=== PATIENT | male | born 2005 | race Caucasian/White ===

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

== ENCOUNTER 2023-11-10 01:35 | Emergency (ER) | payer OTHER, SELFPAY ==
[2023-11-10] VITALS (9 sets, daily range): BP systolic 118–138; BP diastolic 57–73; PULSE 101–130; RESP 13–24; TEMP 36.3; O2SAT 95–100
--- NOTE | ~2023-11-10 | XR_ITS ---
EXAMINATION: XR chest 2V DATE: 11/10/2023 02:06 INDICATION: Chest pain. TECHNIQUE: Frontal and lateral views of the chest were obtained. COMPARISON: Chest 2 views 05/11/2019 FINDINGS: There is no pneumonia, pleural effusion, or pneumothorax. The heart size is normal. IMPRESSION: 1. No acute cardiopulmonary disease. Reviewed, dictated and finalized at location A.
--- NOTE | 2023-11-10 01:36 | ECG_ITS ---
Measurements Intervals [place] Rate: 129 P: 48 NH: 156 QRS: 58 QRSD: 102 T: 30 QT: 384 QTc: 564 Interpretive Statements SINUS TACHYCARDIA NONSPECIFIC T-WAVE ABNORMALITY ABNORMAL RHYTHM ECG NO PREVIOUS ECG AVAILABLE FOR COMPARISON Electronically Signed On 11-10-2023 13:00:52 CDT by Darius Frazier M.D.
[2023-11-10 01:58] LABS: Basophils Percent Auto 0.3 % (0.2-1.2); Eosinophils Absolute Auto 0.1 K/mm3 (0-0.3); Eosinophils Percent Auto 1.1 % (0-4.4); Hematocrit 42.7 % (42.0-52.0); Hemoglobin 15.3 g/dL (14.0-18.0); Immature Granulocyte Absolute 0.03 K/mm3 (0.00-0.031); Immature Granulocyte Percent A 0.3 % (0-0.5); Lymphocytes Absolute Auto 3.69 K/mm3 (0.9-3.2); Lymphocytes Percent Auto 40.3 % (18.3-44.2); Mean Corpuscular HGB Conc 35.8 g/dl (32-36); Mean Corpuscular Hemoglobin 29.1 pg (26-34); Mean Corpuscular Volume 81.3 fl (80-100); Mean Platelet Volume 9.6 fl (7.4-10.4); Monocytes Absolute Auto 0.8 K/mm3 (0.1-0.6); Monocytes Percent Auto 8.4 % (2.6-8.5); Neutrophils Absolute Auto 4.5 K/mm3 (1.3-6.7); Neutrophils Percent Auto 49.6 % (45.5-73.1); Platelet Count Result 345 k/mm3 (150-375); Red Blood Count 5.25 M/mm3 (4.6-6.20); Red Cell Distribution Width 11.8 % (11.5-14.5); White Blood Count 9.2 K/mm3 (4.5-10.0)
[2023-11-10 02:04] LABS: Alanine Aminotransferase 31 U/L (6-50); Albumin Level 4.5 g/dL (3.5-5.1); Alkaline Phosphatase 68 U/L (38-126); Anion Gap 11 mmol/L (4-12); Aspartate Amino Transferase 26 U/L (17-59); Bilirubin,Total 0.5 mg/dL (0.2-1.3); Blood Urea Nitrogen 17 mg/dL (9-20); Calcium 9.2 mg/dL (8.4-10.2); Carbon Dioxide 21 mmol/L (22-30); Chloride 104 mmol/L (98-107); Estimated CRCL calculation 138 ml/min; Estimated Glomerular Filt Rate > 60; Glucose 153 mg/dL (65-110); Lipase 49 U/L (23-300); Sodium 136 mmol/L (137-145)
[2023-11-10 02:15] LABS: Troponin I < 0.012 ng/mL (0.000-0.034)
[2023-11-10 02:20] LABS: Prothrombin Time 13.5 Seconds (11.1-14.7)
[2023-11-10 02:21] LABS: Partial Thromboplastin Time 27.7 Seconds (22.3-36.8)
--- NOTE | 2023-11-10 04:37 | ED.GENADULT ---
HPI - General Adult General Chief complaint: Chest Pain Stated complaint: chest pain Time Seen by Provider: 11/10/23 03:27 History of Present Illness HPI narrative: This is a 18-year-old male presenting after eating an edible THC Brownie. He then developed feelings of intense anxiety, tachycardia palpitations and perioral tingling. He then came to the hospital for evaluation. Since his arrival his symptoms have resolved. Related Data Home Medications Medication Instructions Recorded Confirmed amitriptyline 25 mg tablet 25 mg PO DAILY 01/18/22 01/18/22 escitalopram oxalate 10 mg tablet 10 mg PO DAILY 01/18/22 01/18/22 Allergies Allergy/AdvReac Type Severity Reaction Status Date / Time No Known Allergies Allergy Verified 11/08/21 23:25 [facility] Past Medical History Medical History (Updated 11/10/23 @ 04:42 by Justin Polo MD) No pertinent past medical history Surgical History Surgical History No pertinent past surgical history Social History Social History Smoking status: Never smoker Substance use: never Exam Narrative: APPEARANCE: No apparent distress. Head: atraumatic. EYES: EOMI, NOSE: Atraumatic NECK: Trachea midline RESPIRATORY: No increased rate of breathing CTAB CARDIOVASCULAR: RRR, ABDOMINAL: Non-distended, nonetender MUSCULOSKELETAl: No obvious deformities NEURO: Alert. Moving 4/4 extremities SKIN:: Warm, dry. Normal color PSYCHIATRIC: Normal affect Course Vital Signs Vital signs: Vital Signs Temperature 97.4 F L 11/10/23 01:36 Pulse Rate 130 H 11/10/23 01:36 Respiratory Rate 16 11/10/23 01:36 Blood Pressure 118/57 L 11/10/23 01:36 Pulse Oximetry 96 11/10/23 01:36 Oxygen Delivery Room Air 11/10/23 01:36 Temperature 97.4 F L 11/10/23 01:36 Pulse Rate 130 H 11/10/23 01:36 Respiratory Rate 16 11/10/23 01:36 Blood Pressure 118/57 L 11/10/23 01:36 Pulse Oximetry 96 11/10/23 01:36 Oxygen Delivery Room Air 11/10/23 01:36 Medical Decision Making MDM Narrative Medical decision making narrative: -Course: 18-year-old presenting with anxiety attack after having a THC edible. Tachycardic on presentation ED but improved without intervention. Symptoms had resolved by the time of our interview. The patient given fluid resuscitation and potassium repletion. Patient discharged -DDX includes but is not limited to: Anxiety, THC overdose, nausea vomiting -Independent interpretation of studies: Potassium 3.0. Repeat orally. other labs reviewed and wnl. Chest x-ray unremarkable Independent EKG interpretation: Rhythm [sinus], Rate [129], [place] -[normal], PA -[normal], QRS [narrow], QTC [normal], T waves -[negative for concerning inversions], ST Segments - [Negative for concerning elevations] Final interpretations: Sinus tachycardia -Interventions: Email: Potassium, 2 L normal saline -Shared decision making / Disposition: Discharge Vital Signs Vital Signs: Vital Signs Temperature 97.4 F L 11/10/23 01:36 Pulse Rate 130 H 11/10/23 01:36 Respiratory Rate 16 11/10/23 01:36 Blood Pressure 118/57 L 11/10/23 01:36 Pulse Oximetry 96 11/10/23 01:36 Oxygen Delivery Room Air 11/10/23 01:36 Temperature 97.4 F L 11/10/23 01:36 Pulse Rate 130 H 11/10/23 01:36 Respiratory Rate 16 11/10/23 01:36 Blood Pressure 118/57 L 11/10/23 01:36 Pulse Oximetry 96 11/10/23 01:36 Oxygen Delivery Room Air 11/10/23 01:36 Lab Data 11/10/23 01:47 11/10/23 01:47 Labs: Lab Results 11/10/23 Range/Units 01:47 WBC 9.2 (4.5-10.0) K/mm3 RBC 5.25 (4.6-6.20) M/mm3 Hgb 15.3 (14.0-18.0) g/dL Hct 42.7 (42.0-52.0) % MCV 81.3 (80-100) fl MCH 29.1 (26-34) pg MCHC 35.8 (32-36) g/dl RDW 11.8 (11.5-14.5) % Plt Count 345 (150-375) k/mm3 MPV 9.6 (7.4-10.4) fl
[2023-11-10] MEDS: POTASSIUM CHLORIDE 20 MEQ ER TABLET 80 MEQ PO (04:50)
[2023-11-10] MEDS: SODIUM CHLORIDE 0.9% IV 2,000 ML 999 ML IV CONT (04:51)
[2023-11-10 05:24] LABS: Troponin I < 0.012 ng/mL (0.000-0.034)
== END 2023-11-10 06:40 | disposition home or self-care (01) ==
PROVIDERS: Emergency Provider Emergency Medicine
DX: F12.10 Cannabis abuse, uncomplicated (principal); F41.9 Anxiety disorder, unspecified; R94.31 Abnormal electrocardiogram [ECG] [EKG]
CPT/HCPCS: 36415; 71046; 80053; 83690; 84484; 85025; 85610; 85730; 93005; 96360; 96361; 99284; A9270; J7030